=== PATIENT | male | born 1990 | race Caucasian/White ===

== ENCOUNTER 2016-12-18 18:49 | Emergency (ER) | payer OTHER | END 2016-12-18 20:07 | disposition home or self-care (01) | LOC: ER1 18:49 | DX: S93.611A Sprain of tarsal ligament of right foot, initial encounter (principal); S93.491A Sprain of other ligament of right ankle, initial encounter; F17.210 Nicotine dependence, cigarettes, uncomplicated; X50.1XXA Overexertion from prolonged static or awkward postures, initial encounter; W18.39XA Other fall on same level, initial encounter; Y92.009 Unspecified place in unspecified non-institutional (private) residence as the place of occurrence of the external cause | CPT/HCPCS: 73610; 73630; 99283 ==